=== PATIENT | female | born 1945 | race Caucasian/White ===

== ENCOUNTER 2024-09-15 14:54 | Observation (INO) ==
--- NOTE | 2024-09-15 15:36 | Emergency Department Note ---
HPI - URI/Sore Throat General Chief Complaint: SOB -Shortness of Breath Stated Complaint: Shortness of Breath Time Seen by Provider: 09/15/24 15:27 Source: patient and family Limitations: no limitations History of Present Illness HPI Narrative: This is a 79 year old female patient that presents to the ER with c/o cough and SOB for a few days. Patient denies any chest pain, back pain, abdominal pain, numbness, tingling, weakness or N/V MD elicited complaint: Reports cough Onset (ago): day(s) (3) Exacerbating factors: Reports nothing Relieving factors: Reports nothing Associated symptoms: Reports cough and shortness of breath Treatments prior to arrival: Reports none Related Data Previous Rx's Medication Instructions Recorded cyclobenzaprine 10 mg tablet 10 mg PO TID PRN muscle spasm #15 05/20/24 tabs ketorolac 10 mg tablet 10 mg PO Q6H PRN pain #20 tabs 05/20/24 Allergies Allergy/AdvReac Type Severity Reaction Status Date / Time codeine Allergy Verified 09/15/24 15:14 Review of Systems Status of ROS 10 or more systems reviewed and unremark able except as noted in history and below Constitutional Denies: fever, chills, change in weight, fatigue, malaise or night sweats Eyes Denies: change in vision, blurry vision, blind spots, light sensitivity, eye discomfort or eye discharge Ears, nose, mouth, and throat Denies: throat pain, neck pain, throat swelling, difficulty swallowing, hoarseness or mouth pain Cardiovascular Denies: chest pain, palpitations, edema, swelling of feet/ankles, lightheadedness, shortness of breath with exertion or shortness of breath when lying down Respiratory Reports: shortness of breath and cough; Denies: wheezing, stridor, pain on inspiration, change in phlegm color or coughing up blood Gastrointestinal Denies: abdominal pain, nausea, vomiting, coffee grounds in vomit, heartburn, diarrhea, constipation or bloating Genitourinary Denies: painful urination, urinary frequency, urinary urgency, urinary incontinence, blood in urine or difficulty voiding Musculoskeletal Denies: back pain, neck pain, extremity pain, extremity swelli ng, joint pain, limited range of motion or joint swelling Integumentary/Breast Denies: rash, itching, redness, skin pain, skin tenderness, skin swelling, sores, new lesion or changing lesion Neurological Denies: headache, numbness in extremities, weakness in extremities, lack of coordination, dizziness, vertigo or confusion Psychiatric Denies: anxiety, mood swings, panic attacks, change in sleep pattern, hopelessness, loss of interest or irritability Endocrine Denies: excessive urination, excessive thirst, fatigue, cold intolerance, excessive sweating or flushing Hematologic/Lymphatic Denies: easy bruising, easy bleeding or enlarged lymph nodes Allergic/Immunologic Denies: hives, throat swelling, tongue swelling, facial swelling or wheezing PFSH PFS Medical History (Updated 09/15/24 @ 15:17 by Dalila Bullard RN) Sacral nerve stimulator present GERD (gastroesophageal reflux disease) HLD (hyperlipidemia) RLS (restless legs syndrome) Anemia Depression HX: breast cancer HTN (hypertension) Chronic back pain Asthma Surgical History (Updated 09/15/24 @ 15:17 by Dalila Bullard RN) History of appendectomy History of tonsillectomy History of hysterectomy History of bilateral mastectomy Social History Smoking status: never smoker Feel stressed/tense/nervous/anxious/difficulty sleeping: to some extent Life stressor details: Current medical condition Due to disability, difficulty making decisions: No Exam Constitutional: normal general appearance, no apparent distress and average body habitus Vital Signs - 24 hr 09/15/24 15:00 Temperature 98.6 F Pulse Rate 68 Respiratory Rate 18 Blood Pressure 141/90 Pulse Oximetry 98 Oxygen Delivery Me thod Room Air HENMT: normocephalic, head/scalp atraumatic, hearing grossly normal bilaterally, external ears normal, nasal mucous membranes normal, external nose normal, oral mucous membranes normal and oropharynx normal Eyes: PERRL, EOMs intact bilaterally, conjunctivae normal and no scleral icterus Neck/C-Spine: visual inspection normal and trachea midline Lymph: no lymphadenopathy noted Chest: inspection of chest normal Respiratory: breath sounds equal bilaterally, normal respiratory effort, clear to auscultation bilaterally, no wheezes, no rales, no retractions, no use of accessory muscles and chest percussion normal Cardiovascular: normal heart rate noted, regular rhythm noted, no gallop, no rub, no murmur, no JVD, no clicks, peripheral pulses 2+ throughout and no additional abnormal heart sounds Gastrointestinal: abdomen normal to inspection, abdomen soft to palpation, nontender to palpation, nontender to percussion, nondistended, normoactive bowel sounds, no hepatosplenomegaly, no masses, no pulsatile mass, no ascites and no hernia Genitourinary: no CVA tenderness Back/Pelvis: spine normal to inspection Extremities: normal to inspection, normal to palpation, no tenderness, full ROM, no joint enlargement and no deformity Neurology: 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 VSS, no s/s of acute distress noeted Vital Signs Vital signs: Vital Signs Temperature 98.6 F 09/15/24 15:00 Pulse Rate 68 09/15/24 15:00 Respiratory Rate 18 09/15/24 15:00 Blood Pressure 141/90 09/15/24 15:00 Pulse Oximetry 98 09/15/24 15:00 Oxygen Delivery Method Room Air 09/15/24 15:00 Temperature 98.6 F 09/15/24 15:00 Pulse Rate 68 09/15/24 15:00 Respiratory Rate 18 09/15/24 15:00 Blood Pressure 141/90 09/15/24 15:00 Pulse Oximetry 98 09/15/24 15:00 Oxygen Delivery Method Room Air 09/15/24 15:00 MDM - URI/Sore Throat Differential Diagnosis Upper Respiratory Differential Diagnosis: upper respiratory infection, viral infection, bronchitis and influenza Medical Records MDM Medical Records Attestation: I reviewed the patient's medical records. Lab Data Attestation: I reviewed the patient's lab results. Labs: Lab Results 09/15/24 Range/Units 15:40 WBC 8.8 (4.3-9.3) K/uL RBC 4.3 (4.00-5.50) M/uL Hgb 12.8 (12.5-15.8) gm/dL Hct 38.2 (35.9-46.7) % MCV 89.5 (81.0-93.7) fl MCH 30.0 (27.6-32.2) pg MCHC 33.5 (33.1-35.3) g/dl RDW 13.1 (11.4-14.2) % Plt Count 216 (152-353) K/uL MPV 7.3 (6.9-10.8) fl Gran % 58.5 (47.8-71.3) % Lymph % (Auto) 29.4 (20.0-43.0) % [place] % (Auto) 8.7 (3.6-9.8) % Eos % (Auto) 2.7 (0.4-2.8) % Baso % (Auto) 0.7 (0.1-0.85) Lymph # (Auto) 2.6 (1.1-3.1) [place] # (Auto) 0.8 L (1.1-3.1) Eos # (Auto) 0.2 (0.0-0.2) Baso # (Auto) 0.1 (0.0-0.1) Absolute Gran (auto) 5.1 (2.3-6.0) D-Dimer <100 L (100-600) ng/mL Sodium 129 L (136-145) mmol/L Potassium 4.7 (3.6-5.2) mmol/L Chloride 94.0 L (98-107) mmol/L Carbon Dioxide 33 H (21-32) mmol/L Anion Gap 2.0 L (4-14) mEq/L BUN 10 (7-18) mg/dL Creatinine 0.8 (0.6-1.3) mg/dL Estimated GFR 74.9 (>59.9) Glucose 107 (70-110) mg/dL Calcium 8.8 (8.5-10.1) mg/dL Total Bilirubin 0.42 (0.0-1.0) mg/dL AST 18 (15-37) U/L ALT 17 L (30-65) U/L Alkaline Phosphatase 116 (50-136) U/L Troponin I High Sens 7.10 (4.0-60.4) ng/L B-Natriuretic Peptide 14.4 (0-100) pg/mL Total Protein 6.7 (6.4-8.2) g/dL Albumin 3.3 L (3.4-5.0) g/dL Urine Color Yellow (STRAW/YELL.) Urine Appearance Clear (CLEAR) Ur Specific [place] 1.015 (1.001-1.035) Urine Protein Negative (NEGATIVE) Urine Glucose (UA) Normal (NORMAL) Urine Ketones Negative (NEGATIVE) Urine Occult Blood Negative (NEG - TRACE) Urine Nitrite Negative (NEGATIVE) Urine Bilirubin Negative (NEGATIVE) Urine Urobilinogen Normal (NORMAL) Ur Leukocyte Esterase Negative (NEGATIVE) Fluid pH 6.0 (5 - 9) Influenza Type A Ag Negative (Negative) Influenza Type B Ag Negative (Negative) Imaging Data Attestation imaging: I have reviewed the pertinent imaging results. ECG Data Attestation ECG: I have reviewed the pertinent ECG results. Discharge Plan Discharge Patient Disposition: Admitted As Observation Condition: Stable Chief Complaint: SOB -Shortness of Breath Clinical Impression: Acute hyponatremia, Acute dehydration Prescriptions: No Action ketorolac 10 mg tablet 10 mg PO Q6H PRN (Reason: pain) Qty: 20 0RF Rx Instructions: maximum total duration of 5 days from all oral, intranasal, or parenteral formulations cyclobenzaprine 10 mg tablet 10 mg PO TID PRN (Reason: muscle spasm) Qty: 15 0RF Print Language: Slovenian Referrals: Hussein Hopkins [Primary Care Provider] - Time of Disposition: 16:43
[2024-09-15 15:43] LABS: Basophils #(Absolute) Auto 0.1 (0.0-0.1); Basophils%(Percent) Auto 0.7 (0.1-0.85); Eosinophils#(Absolute)Auto 0.2 (0.0-0.2); Eosinophils%(Percent) Auto 2.7 % (0.4-2.8); Granulocytes % - Auto 58.5 % (47.8-71.3); Granulocytes#(Absolute)- Auto 5.1 (2.3-6.0); Hematocrit 38.2 % (35.9-46.7); Mean Corpuscular Volume 89.5 fl (81.0-93.7); Monocytes #(Absolute)- Auto 0.8 (1.1-3.1); Monocytes %(Percent)- Auto 8.7 % (3.6-9.8); Platelet Count 216 K/uL (152-353); White Blood Count 8.8 K/uL (4.3-9.3)
[2024-09-15 15:45] LABS: Specific Gravity Urine 1.015 (1.001-1.035); Urine Appearance CLEAR (CLEAR); Urine Blood NEGATIVE (NEG - TRACE); Urine Color YELLOW (STRAW/YELL.); Urine Urobilinogen Normal (NORMAL)
[2024-09-15 15:55] LABS: Potassium 4.7 mmol/L (3.6-5.2)
[2024-09-15] MEDS: 0.9 % SODIUM CHLORIDE 1000 ML 1,000 ML IV STA (16:33)
[2024-09-15] MEDS ORDERED: bisacodyL 10 MG SUPP.RECT PR PRN (18:38)
[2024-09-15] MEDS ORDERED: MAGNESIUM, ALUMINUM HYDROXIDE 30 ML ORAL.SUSP PO PRN (18:38)
[2024-09-15] MEDS: 0.9 % SODIUM CHLORIDE 1000 ML 1,000 ML IV SCH (18:45)
[2024-09-15] MEDS ORDERED: ACETAMINOPHEN 500 MG TABLET ONE (21:45)
[2024-09-15] MEDS: ACETAMINOPHEN 500 MG TABLET PO PRN (21:45)
[2024-09-15] MEDS ORDERED: 0.9 % SODIUM CHLORIDE 1000 ML 1,000 ML IV ONE (21:46)
[2024-09-16] MEDS: HYDRALAZINE HCL 20 MG/ML VIAL IVP PRN (02:24)
[2024-09-16] MEDS: GUAIFENESIN/DEXTROMETHORPHAN 20/200MG/10 ML SOLUTION PO ONE (02:53)
[2024-09-16] MEDS: GUAIFENESIN/DEXTROMETHORPHAN 20/200MG/10 ML SOLUTION ONE (03:08)
[2024-09-16 04:47] LABS: Potassium 3.8 mmol/L (3.6-5.2)
[2024-09-16 04:50] LABS: Basophils #(Absolute) Auto 0.1 (0.0-0.1); Basophils%(Percent) Auto 0.8 (0.1-0.85); Eosinophils#(Absolute)Auto 0.2 (0.0-0.2); Eosinophils%(Percent) Auto 2.2 % (0.4-2.8); Granulocytes % - Auto 60.5 % (47.8-71.3); Granulocytes#(Absolute)- Auto 5.5 (2.3-6.0); Hematocrit 37.4 % (35.9-46.7); Mean Corpuscular Volume 89.4 fl (81.0-93.7); Monocytes #(Absolute)- Auto 0.6 (1.1-3.1); Monocytes %(Percent)- Auto 6.2 % (3.6-9.8); Platelet Count 205 K/uL (152-353)
[2024-09-16] MEDS: ENOXAPARIN SODIUM 40 MG/0.4 ML SYRINGE SUBQ SCH (09:55)
[2024-09-16] MEDS: PANTOPRAZOLE SODIUM 40 MG TABLET.DR PO SCH (09:55)
[2024-09-16] MEDS: SODIUM CHLORIDE 1,000 MG TABLET PO SCH (11:33)
--- NOTE | 2024-09-16 12:51 | History & Physical Report ---
H&P: HPI History of Present Illness Chief complaint: HYPONATREMIA,DEHYDRATION Narrative: This is a 79 year old female patient that presents to the ER with c/o cough and SOB for a few days. Patient denies any chest pain, back pain, abdominal pain, numbness, tingling, weakness or N/V. Admitted to med/surg floor for further observation and treatment. Day one of hospital stay, patient states she feels "bad" today with shortness of breath. Nurse reports patient has not complained of cough this a.m. Nurse reports patient had a hypertensive urgency event through the night of , ED provider was called and an order of Hydralizine 10 mg IV was given. Hypertensive urgency was resolved. Patient is hyponatremic with a sodium of 130; fluids increased to 125 mls/hr. Blood work reflects Hypochloremia of 95.0, Hypoproteinemia of 6.2, and Hypoalbuminemia of 3.1. Provider recommends patient continue to be monitored and treated by medical staff at this time. Review of Systems Status of ROS 10 or more systems reviewed and unremark able except as noted in history and below Constitutional Denies: fever, chills, change in weight, fatigue, malaise or night sweats Eyes Denies: change in vision, blurry vision, blind spots, light sensitivity, eye discomfort or eye discharge Ears, nose, mouth, and throat Denies: throat pain, neck pain, throat swelling, difficulty swallowing, hoarseness, mouth pain or vertigo Cardiovascular Reports: shortness of breath with exertion; Denies: chest pain, palpitations, edema, swelling of feet/ankles, lightheadedness or shortness of breath when lying down Respiratory Reports: shortness of breath and cough; Denies: wheezing, stridor, pain on inspiration, change in phlegm color or coughing up blood Gastrointestinal Denies: abdominal pain, nausea, vomiting, coffee grounds in vomit, heartburn, diarrhea, constipation, bloating or difficulty swallowing Genitourinary Denies: painful urination, urinary frequency, urinary urgency, urinary incontinence, blood in urine or difficulty voiding Musculoskeletal Denies: back pain, neck pain, extremity pain, extremity swelling, joint pain, limited range of motion or joint swelling Integumentary/Breast Denies: rash, itching, redness, skin pain, skin tenderness, skin swelling, sores, new lesion or changing lesion Neurological Denies: headache, numbness in extremities, weakness in extremities, lack of coordination, dizziness, vertigo or confusion Psychiatric Denies: anxiety, mood swings, panic attacks, change in sleep pattern, hopelessness, loss of interest or irritability Endocrine Denies: excessive urination, excessive thirst, fatigue, cold intolerance, excessive sweating or flushing Hematologic/Lymphatic Denies: easy bruising, easy bleeding or enlarged lymph nodes Allergic/Immunologic Denies: hives, throat swelling, tongue swelling, facial swelling or wheezing PFSH PFSH Medical History Sacral nerve stimulator present GERD (gastroesophageal reflux disease) HLD (hyperlipidemia) RLS (restless legs syndrome) Anemia Depression HX: breast cancer HTN (hypertension) Chronic back pain Asthma Surgical History History of appendectomy History of tonsillectomy History of hysterectomy History of bilateral mastectomy Social History Smoking status: never smoker Problems where you live: no known problems Highest level of school completed/degree received: high school Feel stressed/tense/nervous/anxious/difficulty sleeping: to some extent Life stressor details: Current medical condition Due to disability, difficulty making decisions: No Do you think of yourself as: straight/heterosexual Gender Identity: female Meds Home Medications and Allergies Home Medications Medication Instructions Recorded Confirmed Type atenolol 50 mg tablet 50 mg PO DAILY 09/16/24 09/16/24 History citalopram 10 mg tablet (Celexa) 10 mg PO DAILY 09/16/24 09/16/24 History citalopram 20 mg tablet (Celexa) 20 mg PO DAILY 09/16/24 09/16/24 History ergocalciferol (vitamin D2) 1,250 1,250 mcg PO QWEEK 09/16/24 09/16/24 History mcg (50,000 unit) capsule (Vitamin D2) ferrous sulfate 325 mg (65 mg 325 mg PO DAILY 09/16/24 09/16/24 History iron) tablet gabapentin 300 mg capsule 300 mg PO BID 09/16/24 09/16/24 History hydrochlorothiazide 25 mg tablet 25 mg PO DAILY 09/16/24 09/16/24 History letrozole 2.5 mg tablet 2.5 mg PO DAILY 09/16/24 09/16/24 History levocetirizine 5 mg tablet 5 mg PO DAILY 09/16/24 09/16/24 History magnesium oxide 400 mg PO BID 09/16/24 09/16/24 History oxybutynin chloride 10 mg 10 mg PO BEDTIME 09/16/24 09/16/24 History tablet,extended release 24 hr pantoprazole 40 mg tablet,delayed 40 mg PO BID 09/16/24 09/16/24 History release ropinirole 2 mg tablet 2 mg PO BEDTIME 09/16/24 09/16/24 History simvastatin 20 mg tablet 20 mg PO BEDTIME 09/16/24 09/16/24 History Allergies Allergy/AdvReac Type Severity Reaction Status Date / Time codeine Allergy Verified 09/15/24 18:46 Exam Exam: Patient stated she feels "bad" today. Constitutional: abnormal general appearance (disheveled) and (lethargic), distress noted, abnormal body habitus (obese), limitations noted (altered mental status) and alert Vital Signs - 24 hr 09/15/24 15:00 09/15/24 15:22 09/15/24 16:00 Temperature 98.6 F Pulse Rate 68 64 65 Pulse Rate [Left R adial] Pulse Rate [Radial ] Respiratory Rate 18 18 18 Blood Pressure 141/90 163/73 134/65 Blood Pressure [Le ft Arm] Pulse Oximetry 98 98 [facility] 09/15/24 16:31 09/15/24 17:00 09/15/24 17:31 Temperature Pulse Rate 65 64 65 Pulse Rate [Left R adial] Pulse Rate [Radial ] Respiratory Rate 18 18 18 Blood Pressure 151/63 162/69 160/70 Blood Pressure [Le ft Arm] Pulse Oximetry 98 98 98 [facility] Room [facility] Room Air 09/15/24 18:00 09/15/24 18:01 09/15/24 18:40 Temperature 98.5 F Pulse Rate 64 Pulse Rate [Left R adial] 70 Pulse Rate [Radial ] 62 Respiratory Rate 16 18 16 Blood Pressure 166/72 Blood Pressure [Le ft Arm] 166/72 Pulse Oximetry 98 98 98 [facility] Room [facility] Room Air 09/15/24 19:01 09/15/24 22:00 09/15/24 22:10 Temperature 98.5 F Pulse Rate 65 68 68 Pulse Rate [Left R adial] Pulse Rate [Radial ] Respiratory Rate 18 18 18 Blood Pressure 173/72 158/75 158/75 Blood Pressure [Le ft Arm] Pulse Oximetry 98 98 98 Oxygen Delivery [place] thod Room Air Room Air 09/16/24 00:00 09/16/24 02:24 09/16/24 03:30 Temperature 98.0 F Pulse Rate Pulse Rate [Left R adial] 72 Pulse Rate [Radial ] Respiratory Rate 18 Blood Pressure 196/53 155/86 Blood Pressure [Le ft Arm] 192/83 Pulse Oximetry 97 Oxygen Delivery Ok thod Room Air 09/16/24 04:00 09/16/24 04:00 09/16/24 08:00 Temperature 98.0 F 98.0 F 98.1 F Pulse Rate Pulse Rate [Left R adial] 70 77 Pulse Rate [Radial ] 70 Respiratory Rate 18 18 20 Blood Pressure Blood Pressure [Le ft Arm] 148/82 148/82 158/71 Pulse Oximetry 96 96 94 L Oxygen Delivery Ok thod Room Air Room Air Room Air HENMT: normocephalic, head/scalp atraumatic, hearing grossly normal bilaterally, external ears normal, nasal mucous membranes normal, external nose normal, oral mucous membranes normal and oropharynx normal Eyes: PERRL, EOMs intact bilaterally, conjunctivae normal, no scleral icterus and papilledema noted Neck/C-Spine: trachea midline, cervical spine nontender, abnormal cervical ROM noted, supple, no meningeal signs, thyroid normal and no carotid bruits Lymph: no lymphadenopathy noted and no lymphedema noted Chest: inspection of chest normal Respiratory: breath sounds equal bilaterally, normal respiratory effort, clear to auscultation bilaterally, no wheezes, no rales, no retractions, no use of accessory muscles and chest percussion normal Cardiovascular: normal heart rate noted, regular rhythm noted, no gallop, no rub, no murmur, no JVD, no clicks, peripheral pulses 2+ throughout and no additional abnormal heart sounds Gastrointestinal: abdomen abnormal to inspection (obese), abdomen soft to palpation, nontender to palpation, nontender to percussion, nondistended, normoactive bowel sounds, no hepatosplenomegaly, no masses, no pulsatile mass, no ascites and no hernia Genitourinary: no CVA tenderness Back/Pelvis: no thoracic spine tenderness, lumbar spine tenderness noted, thoracic spine ROM abnormal and lumbar spine ROM abnormal Extremities: normal to inspection, normal to palpation, no tenderness, full ROM, no joint enlargement and no deformity 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, no movement abnormality noted, no focal motor deficit noted, no sensory deficits noted, gait normal, speech normal, coordination normal, no pronator drift noted, no fasciculations noted and GCS normal Psychiatry: mental status grossly normal, oriented x3, thought process abnormality noted, cooperative, affect normal, psychomotor activity normal and memory abnormal Feel stressed/tense/nervous/anxious/difficulty sleeping: decline to answer Skin: skin color abnormal Reports (pale), no rash, no lesions, skin turgor abnormal Reports (tenting), no jaundice, no petechiae, no mottling and nails abnormality noted Assessment and Plan Assessment and Plan (1) Hyponatremia: Code(s): E87.1 - Hypo-osmolality and hyponatremia (2) Hypertensive urgency: Code(s): I16.0 - Hypertensive urgency (3) Hypoalbuminemia: Code(s): E88.09 - Other disorders of plasma-protein metabolism, not elsewhere classified (4) SOB (shortness of breath): Code(s): R06.02 - Shortness of breath (5) Dehydration: Code(s): E86.0 - Dehydration (6) Cough: Qualifiers: Cough type: acute Qualified Code(s): R05.1 - Acute cough Code(s): R05.9 - Cough, unspecified (7) Runny nose: Code(s): R09.89 - Other specified symptoms and signs involving the circulatory and r espiratory systems (8) General weakness: Code(s): R53.1 - Weakness (9) Hypochloremia: Code(s): E87.8 - Other disorders of electrolyte and fluid balance, not elsewhere classified (10) Hypoproteinemia: Code(s): E77.8 - Other disorders of glycoprotein metabolism (11) Lumbar radiculopathy: Code(s): M54.16 - Radiculopathy, lumbar region (12) Spondylosis: Code(s): M47.9 - Spondylosis, unspecified Plan Sodium Chloride 1,000 mls @ 125 mls/hr IV CONT Pantoprazole Sodium 40 mg PO BID Enoxaparin Sodium 40 mg SUBQ DAILY Sodium Chloride 1,000 mg PO Q8H Acetaminophen 500 mg PO Q6H PRN Magnesium Hydroxide 30 ml PO DAILY PRN Bisacodyl 10 mg MD DAILY PRN Hydralazine Hcl 10 mg IVP Q4H PRN sodium salt tabs as well Results Labs Labs: CBC WBC 9.0 K/uL (4.3-9.3) 09/16/24 04:05 RBC 4.2 M/uL (4.00-5.50) 09/16/24 04:05 Hgb 12.5 gm/dL (12.5-15.8) 09/16/24 04:05 Hct 37.4 % (35.9-46.7) 09/16/24 04:05 MCV 89.4 fl (81.0-93.7) 09/16/24 04:05 MCH 29.9 pg (27.6-32.2) 09/16/24 04:05 MCHC 33.4 g/dl (33.1-35.3) 09/16/24 04:05 RDW 13.0 % (11.4-14.2) 09/16/24 04:05 Plt Count 205 K/uL (152-353) 09/16/24 04:05 MPV 7.7 fl (6.9-10.8) 09/16/24 04:05 Gran % 60.5 % (47.8-71.3) 09/16/24 04:05 Lymph % (Auto) 30.3 % (20.0-43.0) 09/16/24 04:05 [place] % (Auto) 6.2 % (3.6-9.8) 09/16/24 04:05 Eos % (Auto) 2.2 % (0.4-2.8) 09/16/24 04:05 Baso % (Auto) 0.8 (0.1-0.85) 09/16/24 04:05 Lymph # (Auto) 2.7 (1.1-3.1) 09/16/24 04:05 [place] # (Auto) 0.6 (1.1-3.1) L 09/16/24 04:05 Eos # (Auto) 0.2 (0.0-0.2) 09/16/24 04:05 Baso # (Auto) 0.1 (0.0-0.1) 09/16/24 04:05 Absolute Gran (auto) 5.5 (2.3-6.0) 09/16/24 04:05 BMP Sodium 130 mmol/L (136-145) L 09/16/24 04:05 Potassium 3.8 mmol/L (3.6-5.2) 09/16/24 04:05 Chloride 95.0 mmol/L (98-107) L 09/16/24 04:05 Carbon Dioxide 28 mmol/L (21-32) 09/16/24 04:05 Anion Gap 7.0 mEq/L (4-14) 09/16/24 04:05 BUN 10 mg/dL (7-18) 09/16/24 04:05 Creatinine 0.7 mg/dL (0.6-1.3) 09/16/24 04:05 Estimated GFR 87.9 (>59.9) 09/16/24 04:05 Glucose 109 mg/dL (70-110) 09/16/24 04:05 Calcium 8.7 mg/dL (8.5-10.1) 09/16/24 04:05 Total Bilirubin 0.83 mg/dL (0.0-1.0) 09/16/24 04:05 AST 14 U/L (15-37) L 09/16/24 04:05 ALT 21 U/L (30-65) L 09/16/24 04:05 Alkaline Phosphatase 92 U/L (50-136) 09/16/24 04:05 Total Protein 6.2 g/dL (6.4-8.2) L 09/16/24 04:05 Albumin 3.1 g/dL (3.4-5.0) L 09/16/24 04:05 Cardiac Enzymes Troponin I High Sens 7.10 ng/L (4.0-60.4) 09/15/24 15:40 Liver Function Total Bilirubin 0.83 mg/dL (0.0-1.0) 09/16/24 04:05 AST 14 U/L (15-37) L 09/16/24 04:05 ALT 21 U/L (30-65) L 09/16/24 04:05 Alkaline Phosphatase 92 U/L (50-136) 09/16/24 04:05 Total Protein 6.2 g/dL (6.4-8.2) L 09/16/24 04:05 Albumin 3.1 g/dL (3.4-5.0) L 09/16/24 04:05 Urine Urine Color Yellow (STRAW/YELL.) 09/15/24 15:40 Urine Appearance Clear (CLEAR) 09/15/24 15:40 Ur Specific [place] 1.015 (1.001-1.035) 09/15/24 15:40 Urine Protein Negative (NEGATIVE) 09/15/24 15:40 Urine Glucose (UA) Normal (NORMAL) 09/15/24 15:40 Urine Ketones Negative (NEGATIVE) 09/15/24 15:40 Urine Occult Blood Negative (NEG - TRACE) 09/15/24 15:40 Urine Nitrite Negative (NEGATIVE) 09/15/24 15:40 Urine Bilirubin Negative (NEGATIVE) 09/15/24 15:40 Urine Urobilinogen Normal (NORMAL) 09/15/24 15:40 Ur Leukocyte Esterase Negative (NEGATIVE) 09/15/24 15:40 Pulse Oximetry Attestation: I have reviewed the pertinent pulse oximetry results. ECG Attestation: I have reviewed the pertinent ECG results. Prior ECG tracings: available for review Imaging Imaging ordered: Chest x-ray Radiologist's impression: XR CHEST 1V Date of Service: 09/15/24 HISTORY: sob pain in chest ; COMPARISON: June 28, 2024 FINDINGS: The trachea is midline. The cardiac silhouette is mildly enlarged. The lungs are clear without focal infiltrate or effusion. The bony thorax reveals spondylosis and status post posterior lower thoracolumbar spinal fusion unchanged. IMPRESSION: No acute cardiopulmonary disease.
[2024-09-16] MEDS: GABAPENTIN 300 MG CAPSULE PO SCH (20:35)
[2024-09-16] MEDS: ROPINIROLE HCL 0.5 MG TABLET PO SCH (20:35)
[2024-09-17] MEDS: guaiFENesin 100 MG/5 ML LIQUID PO ONE ×2 (01:25→02:10)
[2024-09-17 05:35] LABS: Basophils #(Absolute) Auto 0.1 (0.0-0.1); Basophils%(Percent) Auto 0.9 (0.1-0.85); Eosinophils#(Absolute)Auto 0.2 (0.0-0.2); Eosinophils%(Percent) Auto 2.5 % (0.4-2.8); Granulocytes % - Auto 59.3 % (47.8-71.3); Granulocytes#(Absolute)- Auto 4.4 (2.3-6.0); Hematocrit 36.8 % (35.9-46.7); Mean Corpuscular Volume 88.8 fl (81.0-93.7); Monocytes #(Absolute)- Auto 0.6 (1.1-3.1); Monocytes %(Percent)- Auto 8.1 % (3.6-9.8); Platelet Count 213 K/uL (152-353); White Blood Count 7.4 K/uL (4.3-9.3)
[2024-09-17 06:37] LABS: Potassium 5.1 mmol/L (3.6-5.2)
[2024-09-17 08:29] VITALS: BP 163/78
[2024-09-17 08:42] VITALS: PULSE 66; RESP 22
--- NOTE | 2024-09-17 12:02 | Discharge Summary ---
DS: Providers Provider Date of admission: 09/15/24 17:37 Primary care physician: Hussein Hopkins Admitting clinician: Thais Ham Attending physician on admission: Judy Sharpe Attending physician on discharge: Chris Cheng Discharging clinician: Chris Cheng Anticipated date of discharge: 09/17/24 DS: Diagnosis Discharge Diagnosis (1) Hyponatremia: Assessment and plan: resolved (2) Hypertensive urgency: Assessment and plan: resolved (3) Hypoalbuminemia: Assessment and plan: chronic, stable (4) SOB (shortness of breath): Assessment and plan: resolved (5) Dehydration: Assessment and plan: resolved (6) Cough: Assessment and plan: chronic, stable Qualifiers: Cough type: acute Qualified Code(s): R05.1 - Acute cough (7) Runny nose: Assessment and plan: allergies (8) General weakness: Assessment and plan: improved, chronic (9) Hypochloremia: Assessment and plan: resolved (10) Hypoproteinemia: Assessment and plan: chronic (11) Lumbar radiculopathy: Assessment and plan: chronic (12) Spondylosis: Assessment and plan: chronic, stable Plan Discharge home with oral electrolyte solutions. F/u with PCP and specialists. DS: Summary Hospital Course Hospital Course: 1635: due to patient critically low sodium level and dehydration will admit patient to the hospital for further evaluation and treatment. VSS, no s/s of acute distress noeted Status at Discharge Functional status at discharge: independent ambulation Overall status at discharge: patient is back to baseline Time Spent with Patient Time attestation: Total time spent providing and/or coordinating discharge services: Exam Constitutional: normal general appearance, no apparent distress, abnormal body habitus (obese), no limitations and alert Vital Signs - 24 hr 09/16/24 16:00 09/16/24 20:00 09/16/24 23:37 Temperature 98.4 F 98.5 F 98.1 F Pulse Rate [Left R adial] 67 63 67 Pulse Rate [Radial ] 19 L 18 L Respiratory Rate 20 19 18 Blood Pressure Blood Pressure [Le ft Arm] 150/69 150/61 158/74 Pulse Oximetry 95 97 98 Oxygen Delivery Me thod Room Air Room Air Room Air 09/17/24 04:00 09/17/24 06:35 09/17/24 08:00 Temperature 98.2 F 97.8 F Pulse Rate [Left R adial] 64 66 Pulse Rate [Radial ] Respiratory Rate 16 22 Blood Pressure 184/80 Blood Pressure [Le ft Arm] 184/80 163/78 Pulse Oximetry 96 [facility] 09/17/24 08:29 Temperature Pulse Rate [Left R adial] Pulse Rate [Radial ] Respiratory Rate Blood Pressure 163/78 Blood Pressure [Le ft Arm] Pulse Oximetry [facility] H[facility]: normocephalic, head/scalp atraumatic, hearing grossly normal bilaterally and external ears normal Eyes: PERRL, EOMs intact bilaterally and conjunctivae normal Neck/C-Spine: visual inspection normal and trachea midline Respiratory: breath sounds equal bilaterally, normal respiratory effort and clear to auscultation bilaterally Cardiovascular: normal heart rate noted, regular rhythm noted and no murmur Gastrointestinal: abdomen soft to palpation, nontender to palpation, nondistended and normoactive bowel sounds Neurology: speech normal and coordination normal Psychiatry: mental status grossly normal, oriented x3, thought process normal, cooperative, affect normal, psychomotor activity normal and memory normal DS: Data Data Completed and Pending Labs on day of discharge: Labs from last 24 hours 09/17/24 05:05 WBC 7.4 RBC 4.1 Hgb 12.4 L Hct 36.8 MCV 88.8 MCH 30.0 MCHC 33.7 RDW 13.2 Plt Count 213 MPV 7.7 Gran % 59.3 Lymph % (Auto) 29.2 [place] % (Auto) 8.1 Eos % (Auto) 2.5 Baso % (Auto) 0.9 H Lymph # (Auto) 2.2 [place] # (Auto) 0.6 L Eos # (Auto) 0.2 Baso # (Auto) 0.1 Absolute Gran (auto) 4.4 Sodium 137 Potassium 5.1 Chloride 100.0 Carbon Dioxide 34 H Anion Gap 3.0 L BUN 9 Creatinine 0.6 Estimated GFR 91.3 Glucose 96 Calcium 8.9 Phosphorus 3.4 Magnesium 1.9 Total Bilirubin 0.80 AST 15 ALT 15 L Alkaline Phosphatase 95 Total Protein 6.5 Albumin 3.2 L Discharge Plan Discharge Disposition: Home, Self-Care Condition: Stable Discharge Medications: Continued gabapentin 300 mg capsule 300 mg PO BID letrozole 2.5 mg tablet 2.5 mg PO DAILY hydrochlorothiazide 25 mg tablet 25 mg PO DAILY oxybutynin chloride 10 mg tablet extended release 24hr 10 mg PO BEDTIME ropinirole 2 mg tablet 2 mg PO BEDTIME levocetirizine 5 mg tablet 5 mg PO DAILY pantoprazole 40 mg tablet,delayed release (DR/EC) 40 mg PO BID citalopram [Celexa] 10 mg tablet 10 mg PO DAILY citalopram [Celexa] 20 mg tablet 20 mg PO DAILY ergocalciferol (vitamin D2) [Vitamin D2] 1,250 mcg (50,000 unit) capsule 1,250 mcg PO QWEEK Patient Comments: TAKES EVERY THURSDAY ferrous sulfate 325 mg (65 mg iron) tablet 325 mg PO DAILY magnesium oxide 400 mg magnesium tablet 400 mg PO BID atenolol 50 mg tablet 50 mg PO DAILY simvastatin 20 mg tablet 20 mg PO BEDTIME Discharge Orders: Discharge Order (Routine); Ordered 09/17/24 Ordered By: Chris Cheng Activity: increase activity as tolerated Diet: advance to your usual diet Interventions: MED/SURG & ICU Observation Charge Sheet Last Done: 09/16/24 23:28 Forms: Portal/Health Info Access Inst Follow-Ups: Hussein Hopkins [Primary Care Provider] -
[2024-09-17 13:55] VITALS: TEMP 97.9
== END 2024-09-17 14:10 | disposition home or self-care (01) ==
LOC: MS 14:54 → ED 14:54 → MS 22:10
PROVIDERS: ADMIT Family Medicine; ATTEND Family Medicine